=== PATIENT | female | born 1980 | race Caucasian/White ===

== ENCOUNTER 2020-03-11 08:39 | Outpatient (CLI) | payer OTHER ==
[2020-03-11] MEDS ORDERED: KETO1SPR NAS (09:46)
== END 2020-03-11 23:59 | disposition home or self-care (01) ==
LOC: STAR 08:39
PROVIDERS: ATTEND Specialist
DX: Z11.59 Encounter for screening for other viral diseases (principal)
CPT/HCPCS: U0001-CS

== ENCOUNTER 2020-03-18 10:02 | Day surgery (SDC) | payer OTHER ==
[~2020-03-18] VITALS: Ht 170.2 cm; Wt 52.7 kg
[~2020-03-18 10:02] MED LIST: KETO1SPR NAS
[2020-03-18] MEDS ORDERED: LIDOCAINE-MPF 1%, 2ML INFIL ONE (10:16)
[2020-03-18] MEDS ORDERED: LACTATED RINGERS 1,000 ML IV ONE (10:16)
[2020-03-18] MEDS ORDERED: CHLORHEXIDINE 15 ML UDC MM ONE (10:16)
[2020-03-18 10:18] VITALS: BP 137/90
[2020-03-18] MEDS ORDERED: CHLORHEXIDINE 15 ML UDC ONE (10:28)
[2020-03-18] MEDS ORDERED: LIDOCAINE-MPF 1%, 2ML ONE (10:29)
[2020-03-18 10:55] LABS: HCG UR SG 1.025 (1.003-1.030)
[2020-03-18] MEDS ORDERED: MIDAZOLAM 1 MG/ML, 2ML ONE (11:43)
[2020-03-18] MEDS ORDERED: FENTANYL PF 250 MCG/5ML ONE (11:43)
[2020-03-18] MEDS ORDERED: FLUORESCEIN SODIUM 500 MG/5 ML ONE (12:14)
[2020-03-18] MEDS ORDERED: BUPIVACAINE/PF-EPI 0.25% 1:200K ONE (12:14)
[2020-03-18] MEDS ORDERED: HYDROmorphone 1 MG/ML, 1ML INJ IVPush PRN (13:00)
[2020-03-18] MEDS ORDERED: ACETAMINOPHEN 325 MG TABLET PO PRN (13:00)
[2020-03-18] MEDS ORDERED: LORazepam 2 MG/ML, 1ML IVPush PRN (13:00)
[2020-03-18] MEDS ORDERED: METHOCARBAMOL 1,000 MG in DEXTROSE 5% 100 ML IV PRN (13:00)
[2020-03-18] MEDS ORDERED: OXYcodone 5 MG/5 ML ORAL.SOL UDC PO PRN ×2 (13:00→15:30)
[2020-03-18] MEDS ORDERED: PROMETHAZINE 25 MG/ML, 1ML IVPush PRN (13:00)
[2020-03-18] MEDS ORDERED: ONDANSETRON 2MG/ML, 2ML IVPush PRN (13:00)
[2020-03-18] MEDS ORDERED: PROMETHAZINE 25 MG SUPP PR PRN (13:00)
[2020-03-18] MEDS ORDERED: DIAZEPAM 5 MG/ML, 2ML IVPush PRN (13:00)
[2020-03-18] MEDS ORDERED: MEPERIDINE/PF 25MG/0.5ML IVPush PRN (13:00)
[2020-03-18] MEDS ORDERED: FENTANYL PF 100 MCG/2ML IV PRN (13:00)
[2020-03-18] MEDS ORDERED: FENTANYL PF 100 MCG/2ML ONE (13:15)
[2020-03-18] MEDS ORDERED: ROCURONIUM 10MG/ML,5ML ONE (13:21)
[2020-03-18] MEDS ORDERED: CEFAZOLIN 1,000 MG ONE (13:21)
[2020-03-18] MEDS ORDERED: SUCCINYLCHOLINE 20 MG/ML, 10ML ONE (13:21)
[2020-03-18] MEDS ORDERED: NEOSTIGMINE 1 MG/ML, 10ML ONE (13:21)
[2020-03-18] MEDS ORDERED: DEXAMETHASONE 4 MG/ML, 1ML ONE (13:21)
[2020-03-18] MEDS ORDERED: GLYCOPYRROLATE 0.2MG/1ML, 5ML ONE (13:21)
[2020-03-18] MEDS ORDERED: ONDANSETRON 2MG/ML, 2ML ONE (13:21)
[2020-03-18] MEDS ORDERED: PROPOFOL 10 MG/ML, 20ML ONE (13:21)
[2020-03-18] MEDS ORDERED: OXYcodone 5 MG/5 ML ORAL.SOL UDC ONE (14:01)
[2020-03-18] MEDS ORDERED: KETOROLAC 30 MG/1 ML ONE (14:01)
[2020-03-18] MEDS ORDERED: KETOROLAC 30 MG/1 ML IVPush ONE (14:30)
[2020-03-18] MEDS ORDERED: HYDROmorphone 2 MG/ML, 1ML IV PRN (15:30)
[2020-03-18] MEDS ORDERED: D5%-LACTATED RINGERS 1,000 ML IV SCH (15:30)
[2020-03-18] MEDS ORDERED: ONDANSETRON 2MG/ML, 2ML IV PRN (15:30)
[2020-03-18] MEDS ORDERED: SIMETHICONE 80 MG CHEW TAB PO SCH (16:00)
[2020-03-18] MEDS ORDERED: KETOROLAC 30 MG/1 ML IV SCH (19:30)
[2020-03-18] MEDS ORDERED: OXYC10TA6 PO (19:39)
[2020-03-18] MEDS ORDERED: ZOLPIDEM 5MG TABLET PO PRN (21:00)
== END 2020-03-18 20:55 | disposition home or self-care (01) ==
LOC: OUT 10:02 → 4NE 15:00 → OUT 15:17 → UNDOADMIN 15:17 → UNDODISIN 20:55 → OUT 20:55
PROVIDERS: ATTEND Specialist
DX: N94.6 Dysmenorrhea, unspecified (principal); N92.0 Excessive and frequent menstruation with regular cycle; D25.1 Intramural leiomyoma of uterus; N70.01 Acute salpingitis
CPT/HCPCS: 58262; 81025; 88307; J0690; J1100; J1885; J2250; J2405; J2704; J2710; J3010; J7121; G0378; J0330